=== PATIENT | female | born 1945 | race Caucasian/White ===

== ENCOUNTER 2023-01-02 18:30 | Inpatient (IN) | payer MEDICARE, OTHER ==
[~2023-01-02] VITALS: Ht 157.5 cm; Wt 59.4 kg
[~2023-01-02 18:30] MED LIST: ALEN70TA80 PO
[2023-01-02 19:29] LABS: BASOPHILS % (AUTO) 0.7 % (0.0-2.0); EOSINOPHILS # (AUTO) 0.1 K/uL (0.0-0.7); EOSINOPHILS % (AUTO) 1.8 % (0.0-6.0); HEMATOCRIT 40 % (33-45); HEMOGLOBIN 12.7 g/dL (11.5-14.8); LYMPHOCYTES # (AUTO) 1.4 K/uL (0.8-4.8); LYMPHOCYTES % (AUTO) 20.2 % (20.0-44.0); MEAN CORPUSCULAR HEMOGLOBIN 29 PG (26.0-33.0); MEAN CORPUSCULAR HGB CONC 32 g/dl (31.0-36.0); MEAN CORPUSCULAR VOLUME 91 fL (82-100); MONOCYTES # (AUTO) 0.6 K/uL (0.1-1.30); MONOCYTES % (AUTO) 8.4 % (2.0-12.0); NEUTROPHILS # (AUTO) 4.9 K/uL (1.8-8.9); NEUTROPHILS % (AUTO) 68.9 % (43.0-81.0); PLATELET COUNT (AUTO) 248 K/uL (150-450); RED BLOOD CELL COUNT(AUTO) 4.37 MIL/uL (4.0-5.2); RED CELL DISTRIBUTION WIDTH 14.5 % (11.5-15.0); WHITE BLOOD COUNT (AUTO) 7.1 K/uL (4.3-11.0)
[2023-01-02 19:50] LABS: CALCIUM, SERUM 8.9 mg/dL (8.5-10.1); CARBON DIOXIDE 24 mmol/L (21-32); CHLORIDE 109 mmol/L (98-107); CREATININE 0.7 mg/dL (0.6-1.3); GLUCOSE 102 mg/dL (74-106); POTASSIUM 4.2 mmol/L (3.5-5.1); SODIUM SERUM 140 mmol/L (136-145); UREA NITROGEN, BLOOD 23 mg/dL (7-18)
[2023-01-02 19:56] LABS: ACETAMINOPHEN < 10 ug/ml (10-30); ALANINE AMINOTRANSFERASE 33 U/L (12-78); ALBUMIN 2.6 g/dL (3.4-5.0); ALCOHOL, BLOOD < 3 mg/dL (0-10); ALKALINE PHOSPHATASE 99 U/L (46-116); ASPARTATE AMINOTRANSFERASE 26 U/L (15-37); BILIRUBIN,DIRECT 0.2 mg/dL (0.0-0.2); BILIRUBIN,TOTAL 0.5 mg/dL (0.2-1.0); TOTAL PROTEIN, SERUM 6.3 g/dL (6.4-8.2)
[2023-01-02 19:58] LABS: SALICYLATE < 2.3 mg/dL (2.8-20.0)
[2023-01-02 21:51] LABS: APPEARANCE,URINE SLIGHTLY CLOUDY (CLEAR); BILIRUBIN,URINE NEGATIVE (NEGATIVE); BLOOD, URINE NEGATIVE Ery/uL (NEGATIVE); COLOR,URINE YELLOW (YELLOW); KETONES,URINE NEGATIVE (NEGATIVE); LEUKOCYTE ESTERASE ,URINE 2+ (NEGATIVE); NITRITE, URINE POSITIVE (NEGATIVE); PROTEIN,URINE NEGATIVE (NEGATIVE); UGLUCOSE NEGATIVE (NEGATIVE)
[2023-01-02 22:06] LABS: AMPHETAMINE, URINE NEGATIVE (NEGATIVE); BARBITURATE, URINE NEGATIVE (NEGATIVE); BENZODIAZEPINE, URINE NEGATIVE (NEGATIVE); CANNABINOID, URINE NEGATIVE (NEGATIVE); COCCAINE, URINE NEGATIVE (NEGATIVE); OPIATE, URINE NEGATIVE (NEGATIVE); PHENCYCLIDINE SCREEN,URINE NEGATIVE (NEGATIVE)
[2023-01-02 22:14] LABS: ADD URINE CULTURE YES; BACTERIA,URINE 2+ /HPF (None Seen); RBC,URINE NONE SEEN /HPF (0-2); WBC,URINE 21-50 /HPF (0-3)
[2023-01-03] MEDS ORDERED: FLUT1DIS INH (01:40)
[2023-01-03] MEDS ORDERED: ASCO500T21 PO (01:45)
[2023-01-03] MEDS ORDERED: ASPI-1169 PO (01:47)
[2023-01-03] MEDS ORDERED: ATOR20TA PO (01:48)
[2023-01-03] MEDS ORDERED: DOCU100C36 PO (01:50)
[2023-01-03] MEDS ORDERED: KETO120S5 TP (01:52)
[2023-01-03] MEDS ORDERED: LACT10SO3 PO (01:54)
[2023-01-03] MEDS ORDERED: OLAN5TAB3 PO (01:58)
[2023-01-03] MEDS ORDERED: POLY17PO4 PO (01:58)
[2023-01-03] MEDS ORDERED: RISP3TAB5 PO (02:01)
[2023-01-03] MEDS ORDERED: OMEP20TA5 PO (02:01)
[2023-01-03] MEDS ORDERED: TIOT18CA3 INH (02:02)
[2023-01-03] MEDS ORDERED: CALC100067 PO (02:04)
[2023-01-03 02:15] VITALS: BP 136/83; TEMP 98; O2SAT 98
[2023-01-03] MEDS ORDERED: MAGNESIUM HYDROXIDE 30 ML UDC PO PRN (02:30)
[2023-01-03] MEDS ORDERED: TEMAZEPAM 7.5 MG CAPSULE PO PRN (02:30)
[2023-01-03] MEDS ORDERED: BLOOD SUGAR DIAGNOSTIC 1 EACH STRIP IN ONE (02:30)
[2023-01-03] MEDS ORDERED: ACETAMINOPHEN 325 MG TABLET PO PRN (02:30)
[2023-01-03] MEDS ORDERED: MAG HYDROX/AL HYDROX/SIMETH 30 ML UDC PO PRN (02:30)
[2023-01-03] MEDS ORDERED: Z GUARD REMEDY 4 OZ OINT TP PRN (04:00)
[2023-01-03] MEDS: LORAZEPAM 0.5 MG TABLET PO PRN (05:10)
[2023-01-03 08:00] VITALS: BP 104/64; TEMP 98.1; O2SAT 98
[2023-01-03] MEDS ORDERED: NEOM28.43 TP (08:03)
[2023-01-03] MEDS ORDERED: LORA-259 PO (08:04)
[2023-01-03] MEDS: NITROFURANTOIN/MONOHYDRATE MACROCRYSTALS 100 MG CAPSULE PO SCH ×2 (08:20→16:11)
[2023-01-03] MEDS: Z GUARD REMEDY 4 OZ OINT TP SCH (09:29)
[2023-01-03] MEDS ORDERED: POLYETHYLENE GLYCOL 3350 17 GM POWD.PACK PO SCH (10:00)
[2023-01-03] MEDS ORDERED: CALCIUM CARBONATE 500 MG TAB.CHEW PO PRN (10:30)
[2023-01-03] MEDS: LITHIUM CARBONATE 150 MG CAPSULE PO SCH ×2 (11:34→20:29)
[2023-01-03] MEDS: ALBUTEROL FS 2.5 MG/0.5 ML VIAL.NEB NEB SCH ×2 (13:30→19:30)
[2023-01-03 16:00] VITALS: BP 129/62; TEMP 98.6; O2SAT 94
[2023-01-03] MEDS: OLANZAPINE 2.5 MG TABLET PO SCH (16:11)
[2023-01-03] MEDS: LACTULOSE 10 G/15 ML UDC (PYXIS) PO SCH (16:18)
[2023-01-03] MEDS: NEOMY SULF/BACITRAC ZN/POLY 15 GM TUBE TP SCH (17:38)
[2023-01-03] MEDS: BUDESONIDE RESPULE INH 0.5 MG/2 ML AMPUL.NEB NEB SCH (19:30)
[2023-01-03] MEDS: risperiDONE 1 MG TABLET PO SCH (20:29)
[2023-01-03] MEDS: ATORVASTATIN 10 MG TABLET PO SCH (21:12)
[2023-01-03 21:33] VITALS: BP 138/67; TEMP 98.7; O2SAT 99
[2023-01-04] MEDS: ALBUTEROL FS 2.5 MG/0.5 ML VIAL.NEB NEB SCH ×4 (01:30→19:30)
[2023-01-04] MEDS: BUDESONIDE RESPULE INH 0.5 MG/2 ML AMPUL.NEB NEB SCH ×2 (07:30→19:30)
[2023-01-04 07:36] LABS: BASOPHILS % (AUTO) 0.5 % (0.0-2.0); EOSINOPHILS # (AUTO) 0.2 K/uL (0.0-0.7); EOSINOPHILS % (AUTO) 3.5 % (0.0-6.0); HEMATOCRIT 42 % (33-45); HEMOGLOBIN 13.5 g/dL (11.5-14.8); LYMPHOCYTES # (AUTO) 1.2 K/uL (0.8-4.8); LYMPHOCYTES % (AUTO) 20.4 % (20.0-44.0); MEAN CORPUSCULAR HEMOGLOBIN 29 PG (26.0-33.0); MEAN CORPUSCULAR HGB CONC 33 g/dl (31.0-36.0); MEAN CORPUSCULAR VOLUME 90 fL (82-100); MONOCYTES # (AUTO) 0.4 K/uL (0.1-1.30); MONOCYTES % (AUTO) 6.9 % (2.0-12.0); NEUTROPHILS % (AUTO) 68.7 % (43.0-81.0); PLATELET COUNT (AUTO) 264 K/uL (150-450); RED BLOOD CELL COUNT(AUTO) 4.62 MIL/uL (4.0-5.2); RED CELL DISTRIBUTION WIDTH 14.6 % (11.5-15.0); WHITE BLOOD COUNT (AUTO) 5.9 K/uL (4.3-11.0)
[2023-01-04 08:00] VITALS: BP 115/62; TEMP 98.2; O2SAT 95
[2023-01-04 08:01] LABS: CALCIUM, SERUM 9.1 mg/dL (8.5-10.1); CARBON DIOXIDE 26 mmol/L (21-32); CHLORIDE 108 mmol/L (98-107); CREATININE 0.6 mg/dL (0.6-1.3); GLUCOSE 89 mg/dL (74-106); POTASSIUM 4.2 mmol/L (3.5-5.1); SODIUM SERUM 141 mmol/L (136-145); UREA NITROGEN, BLOOD 17 mg/dL (7-18)
[2023-01-04 08:03] LABS: CHOLESTEROL 109 mg/dL (<200); HDL CHOLESTEROL 39 mg/dL (40-60); LDL 58 mg/dL (0-99); TRIGLYCERIDES 105 mg/dL (30-150)
[2023-01-04] MEDS: LACTULOSE 10 G/15 ML UDC (PYXIS) PO SCH ×2 (08:27→17:22)
[2023-01-04] MEDS: risperiDONE 1 MG TABLET PO SCH ×2 (08:28→21:03)
[2023-01-04] MEDS: LITHIUM CARBONATE 150 MG CAPSULE PO SCH ×2 (08:28→21:03)
[2023-01-04] MEDS: OLANZAPINE 2.5 MG TABLET PO SCH ×2 (08:28→17:22)
[2023-01-04] MEDS: NITROFURANTOIN/MONOHYDRATE MACROCRYSTALS 100 MG CAPSULE PO SCH ×2 (08:28→17:22)
[2023-01-04] MEDS: Z GUARD REMEDY 4 OZ OINT TP SCH (08:29)
[2023-01-04] MEDS: NEOMY SULF/BACITRAC ZN/POLY 15 GM TUBE TP SCH (08:29)
[2023-01-04] MEDS: ASCORBIC ACID 500 MG TABLET PO SCH (09:24)
[2023-01-04] MEDS: DOCUSATE SODIUM 100 MG CAPSULE PO SCH (09:25)
[2023-01-04] MEDS: PANTOPRAZOLE 40 MG TABLET.DR PO SCH (09:25)
[2023-01-04] MEDS: ASPIRIN 81 MG TAB.CHEW PO SCH (09:25)
[2023-01-04] MEDS: LORAZEPAM 0.5 MG TABLET PO PRN (12:57)
[2023-01-04] MEDS: IPRATROPIUM NEB FS 0.5 MG/2.5 ML AMPUL.NEB NEB SCH ×2 (13:05→19:30)
[2023-01-04 16:00] VITALS: BP 112/64; TEMP 98; O2SAT 95
[2023-01-04 20:00] VITALS: BP 136/66; TEMP 98.4; O2SAT 98
[2023-01-04] MEDS ORDERED: KETOCONAZOLE SHAMPOO 120 ML BOTTLE TP SCH (21:00)
[2023-01-04] MEDS: ATORVASTATIN 10 MG TABLET PO SCH (21:08)
[2023-01-05] MEDS: ALBUTEROL FS 2.5 MG/0.5 ML VIAL.NEB NEB SCH ×4 (00:49→19:39)
[2023-01-05] MEDS: IPRATROPIUM NEB FS 0.5 MG/2.5 ML AMPUL.NEB NEB SCH ×4 (00:49→19:39)
[2023-01-05 08:00] VITALS: BP 101/65; TEMP 97.6; O2SAT 97
[2023-01-05 08:03] VITALS: O2SAT 95
[2023-01-05] MEDS: BUDESONIDE RESPULE INH 0.5 MG/2 ML AMPUL.NEB NEB SCH ×2 (08:03→19:39)
[2023-01-05 08:20] VITALS: O2SAT 99
[2023-01-05] MEDS: LACTULOSE 10 G/15 ML UDC (PYXIS) PO SCH ×2 (09:02→16:39)
[2023-01-05] MEDS: ASCORBIC ACID 500 MG TABLET PO SCH (09:02)
[2023-01-05] MEDS: OLANZAPINE 2.5 MG TABLET PO SCH ×2 (09:02→16:39)
[2023-01-05] MEDS: NITROFURANTOIN/MONOHYDRATE MACROCRYSTALS 100 MG CAPSULE PO SCH ×2 (09:02→16:39)
[2023-01-05] MEDS: DOCUSATE SODIUM 100 MG CAPSULE PO SCH (09:02)
[2023-01-05] MEDS: LITHIUM CARBONATE 150 MG CAPSULE PO SCH ×2 (09:03→21:10)
[2023-01-05] MEDS: ASPIRIN 81 MG TAB.CHEW PO SCH (09:03)
[2023-01-05] MEDS: PANTOPRAZOLE 40 MG TABLET.DR PO SCH ×2 (09:03→09:12)
[2023-01-05] MEDS: risperiDONE 1 MG TABLET PO SCH ×2 (09:03→21:11)
[2023-01-05] MEDS: NEOMY SULF/BACITRAC ZN/POLY 15 GM TUBE TP SCH (09:04)
[2023-01-05] MEDS: Z GUARD REMEDY 4 OZ OINT TP SCH (09:04)
[2023-01-05] MEDS: KETOCONAZOLE SHAMPOO 120 ML BOTTLE TP SCH (09:04)
[2023-01-05] MEDS ORDERED: PANTOPRAZOLE 40 MG TABLET.DR PO SCH (09:08)
[2023-01-05 16:00] VITALS: BP 100/69; TEMP 97.7; O2SAT 96
[2023-01-05 19:39] VITALS: O2SAT 96
[2023-01-05 20:03] VITALS: O2SAT 99
[2023-01-05] MEDS: ATORVASTATIN 10 MG TABLET PO SCH (21:10)
[2023-01-06] MEDS: IPRATROPIUM NEB FS 0.5 MG/2.5 ML AMPUL.NEB NEB SCH ×4 (00:43→20:45)
[2023-01-06] MEDS: ALBUTEROL FS 2.5 MG/0.5 ML VIAL.NEB NEB SCH ×4 (00:43→20:45)
[2023-01-06] MEDS: BUDESONIDE RESPULE INH 0.5 MG/2 ML AMPUL.NEB NEB SCH ×2 (07:24→20:45)
[2023-01-06 08:00] VITALS: BP 122/65; TEMP 97.9; O2SAT 95
[2023-01-06] MEDS: OLANZAPINE 2.5 MG TABLET PO SCH ×2 (08:30→17:08)
[2023-01-06] MEDS: ASPIRIN 81 MG TAB.CHEW PO SCH (08:30)
[2023-01-06] MEDS: NITROFURANTOIN/MONOHYDRATE MACROCRYSTALS 100 MG CAPSULE PO SCH ×2 (08:30→17:08)
[2023-01-06] MEDS: risperiDONE 1 MG TABLET PO SCH ×2 (08:30→21:34)
[2023-01-06] MEDS: LACTULOSE 10 G/15 ML UDC (PYXIS) PO SCH ×2 (08:30→17:08)
[2023-01-06] MEDS: ASCORBIC ACID 500 MG TABLET PO SCH (08:30)
[2023-01-06] MEDS: DOCUSATE SODIUM 100 MG CAPSULE PO SCH (08:30)
[2023-01-06] MEDS: PANTOPRAZOLE 40 MG TABLET.DR PO SCH (08:30)
[2023-01-06] MEDS: LITHIUM CARBONATE 150 MG CAPSULE PO SCH ×2 (08:31→21:34)
[2023-01-06] MEDS: NEOMY SULF/BACITRAC ZN/POLY 15 GM TUBE TP SCH (08:32)
[2023-01-06] MEDS: Z GUARD REMEDY 4 OZ OINT TP SCH (09:00)
[2023-01-06 16:00] VITALS: BP 108/55; TEMP 97.8; O2SAT 96
[2023-01-06 20:31] VITALS: BP 104/46; TEMP 97.9; O2SAT 95
[2023-01-06] MEDS: ATORVASTATIN 10 MG TABLET PO SCH (21:35)
[2023-01-07] MEDS: ALBUTEROL FS 2.5 MG/0.5 ML VIAL.NEB NEB SCH ×4 (02:38→20:49)
[2023-01-07] MEDS: IPRATROPIUM NEB FS 0.5 MG/2.5 ML AMPUL.NEB NEB SCH ×4 (02:38→20:49)
[2023-01-07] MEDS: BUDESONIDE RESPULE INH 0.5 MG/2 ML AMPUL.NEB NEB SCH ×2 (07:30→20:49)
[2023-01-07 08:00] VITALS: BP 111/57; TEMP 97.6; O2SAT 95
[2023-01-07] MEDS: Z GUARD REMEDY 4 OZ OINT TP SCH (09:00)
[2023-01-07] MEDS: ASPIRIN 81 MG TAB.CHEW PO SCH (10:01)
[2023-01-07] MEDS: LACTULOSE 10 G/15 ML UDC (PYXIS) PO SCH ×2 (10:01→17:59)
[2023-01-07] MEDS: NITROFURANTOIN/MONOHYDRATE MACROCRYSTALS 100 MG CAPSULE PO SCH ×2 (10:02→18:00)
[2023-01-07] MEDS: PANTOPRAZOLE 40 MG TABLET.DR PO SCH (10:02)
[2023-01-07] MEDS: DOCUSATE SODIUM 100 MG CAPSULE PO SCH (10:02)
[2023-01-07] MEDS: LITHIUM CARBONATE 150 MG CAPSULE PO SCH ×2 (10:02→21:57)
[2023-01-07] MEDS: risperiDONE 1 MG TABLET PO SCH ×2 (10:03→21:57)
[2023-01-07] MEDS: OLANZAPINE 2.5 MG TABLET PO SCH ×2 (10:03→18:00)
[2023-01-07] MEDS: ASCORBIC ACID 500 MG TABLET PO SCH (10:03)
[2023-01-07] MEDS: NEOMY SULF/BACITRAC ZN/POLY 15 GM TUBE TP SCH (13:53)
[2023-01-07 16:00] VITALS: BP 114/68; TEMP 97.2; O2SAT 99
[2023-01-07 20:20] VITALS: BP 129/62; TEMP 97.8; O2SAT 98
[2023-01-07] MEDS: ATORVASTATIN 10 MG TABLET PO SCH (21:58)
[2023-01-08] MEDS: IPRATROPIUM NEB FS 0.5 MG/2.5 ML AMPUL.NEB NEB SCH ×4 (01:30→21:03)
[2023-01-08] MEDS: ALBUTEROL FS 2.5 MG/0.5 ML VIAL.NEB NEB SCH ×4 (01:30→21:03)
[2023-01-08 06:50] LABS: BASOPHILS % (AUTO) 0.5 % (0.0-2.0); EOSINOPHILS # (AUTO) 0.4 K/uL (0.0-0.7); EOSINOPHILS % (AUTO) 4.9 % (0.0-6.0); HEMATOCRIT 40 % (33-45); HEMOGLOBIN 13.1 g/dL (11.5-14.8); LYMPHOCYTES % (AUTO) 25.9 % (20.0-44.0); MEAN CORPUSCULAR HEMOGLOBIN 30 PG (26.0-33.0); MEAN CORPUSCULAR HGB CONC 33 g/dl (31.0-36.0); MEAN CORPUSCULAR VOLUME 91 fL (82-100); MONOCYTES # (AUTO) 0.7 K/uL (0.1-1.30); MONOCYTES % (AUTO) 9.1 % (2.0-12.0); NEUTROPHILS # (AUTO) 4.5 K/uL (1.8-8.9); NEUTROPHILS % (AUTO) 59.6 % (43.0-81.0); PLATELET COUNT (AUTO) 263 K/uL (150-450); RED CELL DISTRIBUTION WIDTH 14.7 % (11.5-15.0); WHITE BLOOD COUNT (AUTO) 7.6 K/uL (4.3-11.0)
[2023-01-08 07:07] LABS: ALANINE AMINOTRANSFERASE 28 U/L (12-78); ALBUMIN 2.6 g/dL (3.4-5.0); ALKALINE PHOSPHATASE 102 U/L (46-116); ASPARTATE AMINOTRANSFERASE 22 U/L (15-37); BILIRUBIN,TOTAL 0.8 mg/dL (0.2-1.0); CALCIUM, SERUM 9.3 mg/dL (8.5-10.1); CARBON DIOXIDE 25 mmol/L (21-32); CHLORIDE 107 mmol/L (98-107); CREATININE 0.7 mg/dL (0.6-1.3); GLUCOSE 91 mg/dL (74-106); POTASSIUM 4.1 mmol/L (3.5-5.1); SODIUM SERUM 139 mmol/L (136-145); TOTAL PROTEIN, SERUM 6.2 g/dL (6.4-8.2); UREA NITROGEN, BLOOD 19 mg/dL (7-18)
[2023-01-08] MEDS: BUDESONIDE RESPULE INH 0.5 MG/2 ML AMPUL.NEB NEB SCH ×2 (07:30→21:03)
[2023-01-08 08:00] VITALS: BP 98/62; TEMP 97.9; O2SAT 96
[2023-01-08] MEDS: NITROFURANTOIN/MONOHYDRATE MACROCRYSTALS 100 MG CAPSULE PO SCH ×2 (09:01→17:09)
[2023-01-08] MEDS: LACTULOSE 10 G/15 ML UDC (PYXIS) PO SCH ×2 (09:01→17:10)
[2023-01-08] MEDS: ASCORBIC ACID 500 MG TABLET PO SCH (09:01)
[2023-01-08] MEDS: PANTOPRAZOLE 40 MG TABLET.DR PO SCH (09:02)
[2023-01-08] MEDS: DOCUSATE SODIUM 100 MG CAPSULE PO SCH (09:02)
[2023-01-08] MEDS: ASPIRIN 81 MG TAB.CHEW PO SCH (09:02)
[2023-01-08] MEDS: risperiDONE 1 MG TABLET PO SCH ×2 (09:02→21:40)
[2023-01-08] MEDS: OLANZAPINE 2.5 MG TABLET PO SCH ×3 (09:02→17:09)
[2023-01-08] MEDS: LITHIUM CARBONATE 150 MG CAPSULE PO SCH ×2 (09:02→21:39)
[2023-01-08] MEDS: Z GUARD REMEDY 4 OZ OINT TP SCH (09:03)
[2023-01-08] MEDS: KETOCONAZOLE SHAMPOO 120 ML BOTTLE TP SCH (09:03)
[2023-01-08] MEDS: NEOMY SULF/BACITRAC ZN/POLY 15 GM TUBE TP SCH (09:03)
[2023-01-08] MEDS: ALENDRONATE 70 MG TABLET PO SCH (09:27)
[2023-01-08 16:00] VITALS: BP 113/58; TEMP 98.7; O2SAT 96
[2023-01-08 20:26] VITALS: BP 112/50; TEMP 97.9; O2SAT 96
[2023-01-08] MEDS: ATORVASTATIN 10 MG TABLET PO SCH (21:41)
[2023-01-09] MEDS: ALBUTEROL FS 2.5 MG/0.5 ML VIAL.NEB NEB SCH ×4 (01:30→19:30)
[2023-01-09] MEDS: IPRATROPIUM NEB FS 0.5 MG/2.5 ML AMPUL.NEB NEB SCH ×4 (01:30→19:30)
[2023-01-09] MEDS: BUDESONIDE RESPULE INH 0.5 MG/2 ML AMPUL.NEB NEB SCH ×2 (07:28→19:30)
[2023-01-09 08:00] VITALS: BP 104/56; TEMP 97.7; O2SAT 96
[2023-01-09] MEDS: ASPIRIN 81 MG TAB.CHEW PO SCH (08:22)
[2023-01-09] MEDS: LITHIUM CARBONATE 150 MG CAPSULE PO SCH ×2 (08:22→21:14)
[2023-01-09] MEDS: ASCORBIC ACID 500 MG TABLET PO SCH (08:24)
[2023-01-09] MEDS: PANTOPRAZOLE 40 MG TABLET.DR PO SCH (08:24)
[2023-01-09] MEDS: OLANZAPINE 2.5 MG TABLET PO SCH ×3 (08:24→16:23)
[2023-01-09] MEDS: DOCUSATE SODIUM 100 MG CAPSULE PO SCH (08:24)
[2023-01-09] MEDS: risperiDONE 1 MG TABLET PO SCH ×2 (08:24→21:12)
[2023-01-09] MEDS: NITROFURANTOIN/MONOHYDRATE MACROCRYSTALS 100 MG CAPSULE PO SCH ×2 (08:25→16:23)
[2023-01-09] MEDS: LACTULOSE 10 G/15 ML UDC (PYXIS) PO SCH ×2 (08:57→16:23)
[2023-01-09] MEDS: NEOMY SULF/BACITRAC ZN/POLY 15 GM TUBE TP SCH (09:30)
[2023-01-09] MEDS: Z GUARD REMEDY 4 OZ OINT TP SCH (09:30)
[2023-01-09 16:00] VITALS: BP 107/58; TEMP 97.5; O2SAT 97
[2023-01-09 21:12] VITALS: BP 109/58; TEMP 98.4; O2SAT 95
[2023-01-09] MEDS: ATORVASTATIN 10 MG TABLET PO SCH (21:12)
[2023-01-10] MEDS: IPRATROPIUM NEB FS 0.5 MG/2.5 ML AMPUL.NEB NEB SCH ×4 (02:44→19:30)
[2023-01-10] MEDS: ALBUTEROL FS 2.5 MG/0.5 ML VIAL.NEB NEB SCH ×4 (02:44→19:30)
[2023-01-10 02:45] VITALS: O2SAT 94
[2023-01-10] MEDS: BUDESONIDE RESPULE INH 0.5 MG/2 ML AMPUL.NEB NEB SCH ×2 (07:30→19:30)
[2023-01-10 08:00] VITALS: BP 113/62; TEMP 98.6; O2SAT 96
[2023-01-10] MEDS: LACTULOSE 10 G/15 ML UDC (PYXIS) PO SCH ×2 (08:31→16:21)
[2023-01-10] MEDS: PANTOPRAZOLE 40 MG TABLET.DR PO SCH (08:31)
[2023-01-10] MEDS: risperiDONE 1 MG TABLET PO SCH ×2 (08:33→21:23)
[2023-01-10] MEDS: DOCUSATE SODIUM 100 MG CAPSULE PO SCH (08:33)
[2023-01-10] MEDS: ASCORBIC ACID 500 MG TABLET PO SCH (08:33)
[2023-01-10] MEDS: OLANZAPINE 2.5 MG TABLET PO SCH ×3 (08:33→16:21)
[2023-01-10] MEDS: ASPIRIN 81 MG TAB.CHEW PO SCH (08:33)
[2023-01-10] MEDS: LITHIUM CARBONATE 150 MG CAPSULE PO SCH ×2 (08:33→21:23)
[2023-01-10] MEDS: NITROFURANTOIN/MONOHYDRATE MACROCRYSTALS 100 MG CAPSULE PO SCH (08:35)
[2023-01-10] MEDS: Z GUARD REMEDY 4 OZ OINT TP SCH (09:37)
[2023-01-10] MEDS: NEOMY SULF/BACITRAC ZN/POLY 15 GM TUBE TP SCH (09:38)
[2023-01-10 16:00] VITALS: BP 111/60; TEMP 97.9; O2SAT 94
[2023-01-10 20:00] VITALS: BP 102/62; TEMP 98.1; O2SAT 95
[2023-01-10] MEDS: ATORVASTATIN 10 MG TABLET PO SCH (21:23)
[2023-01-11] MEDS: IPRATROPIUM NEB FS 0.5 MG/2.5 ML AMPUL.NEB NEB SCH ×4 (01:30→19:30)
[2023-01-11] MEDS: ALBUTEROL FS 2.5 MG/0.5 ML VIAL.NEB NEB SCH ×4 (01:30→19:30)
[2023-01-11] MEDS: LORAZEPAM 0.5 MG TABLET PO PRN (04:12)
[2023-01-11] MEDS: BUDESONIDE RESPULE INH 0.5 MG/2 ML AMPUL.NEB NEB SCH ×2 (07:30→19:30)
[2023-01-11 08:00] VITALS: BP 100/60; TEMP 97.9; O2SAT 94
[2023-01-11] MEDS: PANTOPRAZOLE 40 MG TABLET.DR PO SCH (08:35)
[2023-01-11] MEDS: ASPIRIN 81 MG TAB.CHEW PO SCH (08:35)
[2023-01-11] MEDS: OLANZAPINE 2.5 MG TABLET PO SCH ×3 (08:35→16:28)
[2023-01-11] MEDS: LITHIUM CARBONATE 150 MG CAPSULE PO SCH ×2 (08:35→21:16)
[2023-01-11] MEDS: ASCORBIC ACID 500 MG TABLET PO SCH (08:35)
[2023-01-11] MEDS: risperiDONE 1 MG TABLET PO SCH ×2 (08:35→21:17)
[2023-01-11] MEDS: NEOMY SULF/BACITRAC ZN/POLY 15 GM TUBE TP SCH (08:38)
[2023-01-11] MEDS: LACTULOSE 10 G/15 ML UDC (PYXIS) PO SCH ×2 (08:40→16:28)
[2023-01-11] MEDS: Z GUARD REMEDY 4 OZ OINT TP SCH (08:40)
[2023-01-11] MEDS: KETOCONAZOLE SHAMPOO 120 ML BOTTLE TP SCH (12:00)
[2023-01-11 16:00] VITALS: BP 99/62; TEMP 98.6; O2SAT 96
[2023-01-11 20:00] VITALS: BP 104/67; TEMP 97.6; O2SAT 96
[2023-01-11] MEDS: ATORVASTATIN 10 MG TABLET PO SCH (21:17)
[2023-01-12] MEDS: ALBUTEROL FS 2.5 MG/0.5 ML VIAL.NEB NEB SCH ×4 (01:30→19:30)
[2023-01-12] MEDS: IPRATROPIUM NEB FS 0.5 MG/2.5 ML AMPUL.NEB NEB SCH ×4 (01:30→19:30)
[2023-01-12] MEDS: BUDESONIDE RESPULE INH 0.5 MG/2 ML AMPUL.NEB NEB SCH ×2 (07:30→19:30)
[2023-01-12] MEDS: OLANZAPINE 2.5 MG TABLET PO SCH ×3 (08:38→16:53)
[2023-01-12] MEDS: ASCORBIC ACID 500 MG TABLET PO SCH (08:38)
[2023-01-12] MEDS: PANTOPRAZOLE 40 MG TABLET.DR PO SCH (08:38)
[2023-01-12] MEDS: LITHIUM CARBONATE 150 MG CAPSULE PO SCH ×2 (08:38→21:31)
[2023-01-12] MEDS: ASPIRIN 81 MG TAB.CHEW PO SCH (08:38)
[2023-01-12] MEDS: DOCUSATE SODIUM 250 MG CAPSULE PO SCH (08:38)
[2023-01-12] MEDS: LACTULOSE 10 G/15 ML UDC (PYXIS) PO SCH ×2 (08:39→16:53)
[2023-01-12] MEDS: risperiDONE 1 MG TABLET PO SCH ×2 (08:39→21:31)
[2023-01-12] MEDS: Z GUARD REMEDY 4 OZ OINT TP SCH (09:08)
[2023-01-12] MEDS: NEOMY SULF/BACITRAC ZN/POLY 15 GM TUBE TP SCH (09:08)
[2023-01-12 20:18] VITALS: BP 109/61; TEMP 98.1; O2SAT 94
[2023-01-12] MEDS: ATORVASTATIN 10 MG TABLET PO SCH (21:29)
[2023-01-13] MEDS: ALBUTEROL FS 2.5 MG/0.5 ML VIAL.NEB NEB SCH ×4 (01:30→19:30)
[2023-01-13] MEDS: IPRATROPIUM NEB FS 0.5 MG/2.5 ML AMPUL.NEB NEB SCH ×4 (01:30→19:30)
[2023-01-13] MEDS: BUDESONIDE RESPULE INH 0.5 MG/2 ML AMPUL.NEB NEB SCH ×2 (07:30→19:30)
[2023-01-13 08:00] VITALS: BP 113/53; TEMP 97.7; O2SAT 96
[2023-01-13] MEDS: ASPIRIN 81 MG TAB.CHEW PO SCH (08:36)
[2023-01-13] MEDS: PANTOPRAZOLE 40 MG TABLET.DR PO SCH (08:36)
[2023-01-13] MEDS: risperiDONE 1 MG TABLET PO SCH ×2 (08:36→20:52)
[2023-01-13] MEDS: DOCUSATE SODIUM 250 MG CAPSULE PO SCH (08:36)
[2023-01-13] MEDS: LACTULOSE 10 G/15 ML UDC (PYXIS) PO SCH ×2 (08:36→16:20)
[2023-01-13] MEDS: OLANZAPINE 2.5 MG TABLET PO SCH ×3 (08:36→16:21)
[2023-01-13] MEDS: LITHIUM CARBONATE 150 MG CAPSULE PO SCH ×2 (08:36→20:52)
[2023-01-13] MEDS: ASCORBIC ACID 500 MG TABLET PO SCH (08:37)
[2023-01-13] MEDS: NEOMY SULF/BACITRAC ZN/POLY 15 GM TUBE TP SCH (09:42)
[2023-01-13] MEDS: Z GUARD REMEDY 4 OZ OINT TP SCH (09:42)
[2023-01-13 16:00] VITALS: BP 104/63; TEMP 98.7; O2SAT 97
[2023-01-13 20:17] VITALS: BP 100/40; TEMP 98.6; O2SAT 96
[2023-01-13] MEDS: ATORVASTATIN 10 MG TABLET PO SCH (21:00)
[2023-01-14] MEDS: IPRATROPIUM NEB FS 0.5 MG/2.5 ML AMPUL.NEB NEB SCH ×4 (01:30→20:28)
[2023-01-14] MEDS: ALBUTEROL FS 2.5 MG/0.5 ML VIAL.NEB NEB SCH ×4 (01:30→20:28)
[2023-01-14 06:54] LABS: BASOPHILS # (AUTO) 0.1 K/uL (0.0-0.2); BASOPHILS % (AUTO) 0.7 % (0.0-2.0); EOSINOPHILS # (AUTO) 0.4 K/uL (0.0-0.7); EOSINOPHILS % (AUTO) 4.6 % (0.0-6.0); HEMATOCRIT 42 % (33-45); HEMOGLOBIN 13.7 g/dL (11.5-14.8); LYMPHOCYTES # (AUTO) 1.5 K/uL (0.8-4.8); LYMPHOCYTES % (AUTO) 16.9 % (20.0-44.0); MEAN CORPUSCULAR HEMOGLOBIN 30 PG (26.0-33.0); MEAN CORPUSCULAR HGB CONC 32 g/dl (31.0-36.0); MEAN CORPUSCULAR VOLUME 92 fL (82-100); MONOCYTES # (AUTO) 0.7 K/uL (0.1-1.30); MONOCYTES % (AUTO) 7.8 % (2.0-12.0); NEUTROPHILS # (AUTO) 6.1 K/uL (1.8-8.9); PLATELET COUNT (AUTO) 292 K/uL (150-450); RED BLOOD CELL COUNT(AUTO) 4.63 MIL/uL (4.0-5.2); RED CELL DISTRIBUTION WIDTH 14.9 % (11.5-15.0); WHITE BLOOD COUNT (AUTO) 8.7 K/uL (4.3-11.0)
[2023-01-14] MEDS: BUDESONIDE RESPULE INH 0.5 MG/2 ML AMPUL.NEB NEB SCH ×2 (07:16→20:28)
[2023-01-14 07:43] LABS: ALANINE AMINOTRANSFERASE 29 U/L (12-78); ALBUMIN 2.4 g/dL (3.4-5.0); ALKALINE PHOSPHATASE 97 U/L (46-116); ASPARTATE AMINOTRANSFERASE 25 U/L (15-37); BILIRUBIN,TOTAL 0.5 mg/dL (0.2-1.0); CALCIUM, SERUM 9.3 mg/dL (8.5-10.1); CARBON DIOXIDE 24 mmol/L (21-32); CHLORIDE 107 mmol/L (98-107); CREATININE 0.8 mg/dL (0.6-1.3); GLUCOSE 87 mg/dL (74-106); POTASSIUM 4.2 mmol/L (3.5-5.1); SODIUM SERUM 135 mmol/L (136-145); UREA NITROGEN, BLOOD 22 mg/dL (7-18)
[2023-01-14 08:00] VITALS: BP 105/56; TEMP 97.7; O2SAT 96
[2023-01-14] MEDS: DOCUSATE SODIUM 250 MG CAPSULE PO SCH (08:46)
[2023-01-14] MEDS: PANTOPRAZOLE 40 MG TABLET.DR PO SCH (08:46)
[2023-01-14] MEDS: LACTULOSE 10 G/15 ML UDC (PYXIS) PO SCH ×2 (08:46→17:46)
[2023-01-14] MEDS: LITHIUM CARBONATE 150 MG CAPSULE PO SCH ×3 (08:46→21:12)
[2023-01-14] MEDS: risperiDONE 1 MG TABLET PO SCH ×2 (08:46→21:12)
[2023-01-14] MEDS: OLANZAPINE 2.5 MG TABLET PO SCH ×3 (08:46→17:46)
[2023-01-14] MEDS: ASPIRIN 81 MG TAB.CHEW PO SCH (08:46)
[2023-01-14] MEDS: ASCORBIC ACID 500 MG TABLET PO SCH (08:46)
[2023-01-14] MEDS: NEOMY SULF/BACITRAC ZN/POLY 15 GM TUBE TP SCH (08:57)
[2023-01-14] MEDS: Z GUARD REMEDY 4 OZ OINT TP SCH (10:05)
[2023-01-14 16:00] VITALS: BP 110/59; TEMP 98.1; O2SAT 96
[2023-01-14 20:22] VITALS: BP 120/54; TEMP 98.2; O2SAT 96
[2023-01-14] MEDS: ATORVASTATIN 10 MG TABLET PO SCH (21:12)
[2023-01-15] MEDS: ALBUTEROL FS 2.5 MG/0.5 ML VIAL.NEB NEB SCH ×3 (01:30→13:30)
[2023-01-15] MEDS: IPRATROPIUM NEB FS 0.5 MG/2.5 ML AMPUL.NEB NEB SCH ×3 (01:30→13:30)
[2023-01-15] MEDS: BUDESONIDE RESPULE INH 0.5 MG/2 ML AMPUL.NEB NEB SCH (07:30)
[2023-01-15 08:00] VITALS: BP 100/58; TEMP 97.3; O2SAT 100
[2023-01-15] MEDS: ASPIRIN 81 MG TAB.CHEW PO SCH (08:36)
[2023-01-15] MEDS: DOCUSATE SODIUM 250 MG CAPSULE PO SCH (08:36)
[2023-01-15] MEDS: risperiDONE 1 MG TABLET PO SCH (08:36)
[2023-01-15] MEDS: LITHIUM CARBONATE 150 MG CAPSULE PO SCH (08:36)
[2023-01-15] MEDS: OLANZAPINE 2.5 MG TABLET PO SCH ×2 (08:36→13:03)
[2023-01-15] MEDS: PANTOPRAZOLE 40 MG TABLET.DR PO SCH (08:36)
[2023-01-15] MEDS: ASCORBIC ACID 500 MG TABLET PO SCH (08:36)
[2023-01-15] MEDS: LACTULOSE 10 G/15 ML UDC (PYXIS) PO SCH (08:38)
[2023-01-15] MEDS: ALENDRONATE 70 MG TABLET PO SCH (08:39)
[2023-01-15] MEDS: Z GUARD REMEDY 4 OZ OINT TP SCH (08:39)
[2023-01-15] MEDS: KETOCONAZOLE SHAMPOO 120 ML BOTTLE TP SCH (09:42)
== END 2023-01-15 14:30 | DRG 885 ==
LOC: ER 18:35 → GPS 01-03 00:49
PROVIDERS: ADMIT Psychiatry & Neurology Psychosomatic Medicine; ATTEND Nurse Practitioner Acute Care
DX: F25.9 Schizoaffective disorder, unspecified (principal); G93.41 Metabolic encephalopathy; N39.0 Urinary tract infection, site not specified; E44.0 Moderate protein-calorie malnutrition; F29 Unspecified psychosis not due to a substance or known physiological condition; I10 Essential (primary) hypertension; K21.9 Gastro-esophageal reflux disease without esophagitis; Z20.822 Contact with and (suspected) exposure to COVID-19; E78.5 Hyperlipidemia, unspecified; E88.09 Other disorders of plasma-protein metabolism, not elsewhere classified; F39 Unspecified mood [affective] disorder; B96.20 Unspecified Escherichia coli [E. coli] as the cause of diseases classified elsewhere; R29.6 Repeated falls; Z91.51 Personal history of suicidal behavior; J44.9 Chronic obstructive pulmonary disease, unspecified; M81.0 Age-related osteoporosis without current pathological fracture; Z68.24 Body mass index [BMI] 24.0-24.9, adult; S02.2XXA Fracture of nasal bones, initial encounter for closed fracture; X58.XXXA Exposure to other specified factors, initial encounter; Y93.9 Activity, unspecified; Y92.129 Unspecified place in nursing home as the place of occurrence of the external cause
CPT/HCPCS: 36415; 70450-TC; 72125-TC; 80048-TC; 80053-TC; 80061-TC; 80076-TC; 81001; 82962-TC; 85025-TC; 87081-TC; 87086-TC; 94799-TC; C9803; G0480

== ENCOUNTER 2023-09-06 16:24 | Inpatient (IN) | payer MEDICARE, OTHER ==
[~2023-09-06] VITALS: Ht 157.5 cm; Wt 62.1 kg
[2023-09-06] MEDS: CEFTRIAXONE 1 G in IV D5W 50 ML IV SCH ×2 (09:00→20:03)
[~2023-09-06 16:24] MED LIST changes: +ASCO500T21 PO; +ASPI-1169 PO; +ATOR20TA PO; +CALC100067 PO; +DOCU100C36 PO; +FLUT1DIS INH; +KETO120S5 TP; +LACT10SO3 PO; +LORA-259 PO; +NEOM28.43 TP; +OLAN5TAB3 PO; +OMEP20TA5 PO; +POLY17PO4 PO; +RISP3TAB5 PO; +TIOT18CA3 INH
[2023-09-06] MEDS ORDERED: ALEN70TA80 PO (17:11)
[2023-09-06] MEDS ORDERED: IPRA4AER IH (17:11)
[2023-09-06] MEDS ORDERED: RISP0.2515 PO (17:11)
[2023-09-06] MEDS ORDERED: PANT40TA2 PO (17:11)
[2023-09-06] MEDS ORDERED: OLAN2.5T3 PO (17:11)
[2023-09-06] MEDS ORDERED: LITH150C PO (17:11)
[2023-09-06 17:42] LABS: BASOPHILS % (AUTO) 0.4 % (0.0-2.0); EOSINOPHILS # (AUTO) 0.2 K/uL (0.0-0.7); EOSINOPHILS % (AUTO) 2.2 % (0.0-6.0); HEMATOCRIT 43 % (33-45); LYMPHOCYTES # (AUTO) 2.1 K/uL (0.8-4.8); LYMPHOCYTES % (AUTO) 26.8 % (20.0-44.0); MEAN CORPUSCULAR HEMOGLOBIN 30 PG (26.0-33.0); MEAN CORPUSCULAR HGB CONC 33 g/dl (31.0-36.0); MEAN CORPUSCULAR VOLUME 92 fL (82-100); MONOCYTES # (AUTO) 0.6 K/uL (0.1-1.30); MONOCYTES % (AUTO) 8.1 % (2.0-12.0); NEUTROPHILS # (AUTO) 4.9 K/uL (1.8-8.9); NEUTROPHILS % (AUTO) 62.5 % (43.0-81.0); PLATELET COUNT (AUTO) 252 K/uL (150-450); RED BLOOD CELL COUNT(AUTO) 4.72 MIL/uL (4.0-5.2); RED CELL DISTRIBUTION WIDTH 14.4 % (11.5-15.0); WHITE BLOOD COUNT (AUTO) 7.8 K/uL (4.3-11.0)
[2023-09-06 17:49] LABS: CALCIUM, SERUM 8.8 mg/dL (8.5-10.1); CARBON DIOXIDE 25 mmol/L (21-32); CHLORIDE 109 mmol/L (98-107); CREATININE 0.9 mg/dL (0.6-1.3); GLUCOSE 94 mg/dL (74-106); POTASSIUM 4.2 mmol/L (3.5-5.1); SODIUM SERUM 140 mmol/L (136-145); UREA NITROGEN, BLOOD 24 mg/dL (7-18)
[2023-09-06 18:04] LABS: ALANINE AMINOTRANSFERASE 22 U/L (12-78); ALBUMIN 2.6 g/dL (3.4-5.0); ALKALINE PHOSPHATASE 94 U/L (46-116); ASPARTATE AMINOTRANSFERASE 23 U/L (15-37); BILIRUBIN,DIRECT 0.2 mg/dL (0.0-0.2); BILIRUBIN,TOTAL 0.5 mg/dL (0.2-1.0); LIPASE 54 U/L (16-77); NT-PRO BNP 129 pg/mL (0-125); TOTAL PROTEIN, SERUM 6.7 g/dL (6.4-8.2)
[2023-09-06 19:05] LABS: APPEARANCE,URINE SLIGHTLY CLOUDY (CLEAR); BILIRUBIN,URINE NEGATIVE (NEGATIVE); BLOOD, URINE 2+ Ery/uL (NEGATIVE); COLOR,URINE YELLOW (YELLOW); KETONES,URINE NEGATIVE (NEGATIVE); LEUKOCYTE ESTERASE ,URINE 3+ (NEGATIVE); NITRITE, URINE POSITIVE (NEGATIVE); PROTEIN,URINE NEGATIVE (NEGATIVE); UGLUCOSE NEGATIVE (NEGATIVE)
[2023-09-06 19:17] LABS: ADD URINE CULTURE YES; BACTERIA,URINE 3+ /HPF (None Seen); RBC,URINE 21-50 /HPF (0-2); SQUAMOUS EPITHELIAL CELL,UR 0-2 /HPF (None Seen); WBC,URINE 51-80 /HPF (0-3)
[2023-09-06] MEDS ORDERED: MAGNESIUM HYDROXIDE 30 ML UDC PO PRN (20:00)
[2023-09-06] MEDS ORDERED: Z GUARD REMEDY 4 OZ OINT TP PRN (20:00)
[2023-09-06] MEDS ORDERED: ONDANSETRON HCL/PF 4 MG/2 ML VIAL IVP PRN (20:00)
[2023-09-06] MEDS ORDERED: ZOLPIDEM TARTRATE 5 MG TABLET PO PRN (20:00)
[2023-09-06] MEDS ORDERED: ACETAMINOPHEN 325 MG TABLET PO PRN (20:00)
[2023-09-06] MEDS ORDERED: LORAZEPAM 1 MG TABLET PO PRN (20:00)
[2023-09-06] MEDS ORDERED: MAG HYDROX/AL HYDROX/SIMETH 30 ML UDC PO PRN (20:00)
[2023-09-06] MEDS ORDERED: CEFTRIAXONE 1GM BAG (ER ONLY) 50 ML IV ONE (20:01)
[2023-09-06] MEDS: CEFTRIAXONE 1 G in IV D5W 50 ML IV ONE (20:28)
[2023-09-06 21:50] VITALS: BP 109/51; TEMP 98.4; O2SAT 96
[2023-09-06] MEDS ORDERED: Medication Not On Formulary EA (Atorvastatin Calcium (Lipitor) 20 MG) PO SCH (22:00)
[2023-09-06] MEDS: IV NS 0.9% 1,000 ML IV PRN (22:20)
[2023-09-06] MEDS: ATORVASTATIN 10 MG TABLET PO ONE (22:45)
[2023-09-07] VITALS (10 sets, daily range): BP systolic 102–119; BP diastolic 56–59; TEMP 97.5–98; O2SAT 94–97
[2023-09-07] MEDS ORDERED: Medication Not On Formulary EA (Ipratropium/Albuterol Sulfate (Combivent Respimat 20-100 IH SCH
[2023-09-07] MEDS: ALBUTEROL FS 2.5 MG/0.5 ML VIAL.NEB NEB SCH (02:00)
[2023-09-07] MEDS: IPRATROPIUM NEB FS 0.5 MG/2.5 ML AMPUL.NEB IH SCH (02:00)
[2023-09-07] MEDS: PANTOPRAZOLE 40 MG TABLET.DR PO SCH (07:30)
[2023-09-07 07:55] LABS: BASOPHILS % (AUTO) 0.5 % (0.0-2.0); EOSINOPHILS # (AUTO) 0.1 K/uL (0.0-0.7); HEMATOCRIT 42 % (33-45); HEMOGLOBIN 13.2 g/dL (11.5-14.8); LYMPHOCYTES # (AUTO) 1.6 K/uL (0.8-4.8); LYMPHOCYTES % (AUTO) 22.8 % (20.0-44.0); MEAN CORPUSCULAR HEMOGLOBIN 30 PG (26.0-33.0); MEAN CORPUSCULAR HGB CONC 32 g/dl (31.0-36.0); MEAN CORPUSCULAR VOLUME 96 fL (82-100); MONOCYTES # (AUTO) 0.5 K/uL (0.1-1.30); NEUTROPHILS # (AUTO) 4.8 K/uL (1.8-8.9); NEUTROPHILS % (AUTO) 67.7 % (43.0-81.0); PLATELET COUNT (AUTO) 239 K/uL (150-450); RED BLOOD CELL COUNT(AUTO) 4.36 MIL/uL (4.0-5.2)
[2023-09-07] MEDS: ASPIRIN 81 MG TAB.CHEW PO SCH (09:00)
[2023-09-07] MEDS: LACTULOSE 10 G/15 ML UDC (PYXIS) PO SCH (09:00)
[2023-09-07] MEDS: OLANZAPINE 2.5 MG TABLET PO SCH (09:00)
[2023-09-07 09:14] LABS: ALANINE AMINOTRANSFERASE 18 U/L (12-78); ALBUMIN 2.2 g/dL (3.4-5.0); ALKALINE PHOSPHATASE 88 U/L (46-116); ASPARTATE AMINOTRANSFERASE 20 U/L (15-37); BILIRUBIN,TOTAL 0.4 mg/dL (0.2-1.0); CALCIUM, SERUM 8.2 mg/dL (8.5-10.1); CARBON DIOXIDE 20 mmol/L (21-32); CHLORIDE 114 mmol/L (98-107); CREATININE 0.7 mg/dL (0.6-1.3); GLUCOSE 72 mg/dL (74-106); MAGNESIUM 2.4 mg/dL (1.8-2.4); POTASSIUM 3.9 mmol/L (3.5-5.1); SODIUM SERUM 143 mmol/L (136-145); TOTAL PROTEIN, SERUM 5.9 g/dL (6.4-8.2); UREA NITROGEN, BLOOD 18 mg/dL (7-18)
[2023-09-07] MEDS: ATORVASTATIN 10 MG TABLET PO SCH (22:17)
[2023-09-08] VITALS (7 sets, daily range): BP systolic 121; BP diastolic 58; TEMP 98.6; O2SAT 95–98
[2023-09-09 07:30] VITALS: BP 125/64; TEMP 98; O2SAT 94
[2023-09-09 07:54] VITALS: O2SAT 94
[2023-09-09 08:07] VITALS: O2SAT 96; O2SAT 98
[2023-09-09 13:28] VITALS: O2SAT 94
[2023-09-09 13:38] VITALS: O2SAT 93
[2023-09-10] MEDS ORDERED: ALENDRONATE 70 MG TABLET PO SCH (20:00)
== END 2023-09-09 16:51 | DRG 689 ==
LOC: ER 16:27 → MED 21:38
PROVIDERS: ADMIT Nurse Practitioner Acute Care; ATTEND Internal Medicine
DX: N39.0 Urinary tract infection, site not specified (principal); G93.41 Metabolic encephalopathy; E44.0 Moderate protein-calorie malnutrition; E78.5 Hyperlipidemia, unspecified; Z20.822 Contact with and (suspected) exposure to COVID-19; E88.09 Other disorders of plasma-protein metabolism, not elsewhere classified; B96.20 Unspecified Escherichia coli [E. coli] as the cause of diseases classified elsewhere; F03.90 Unspecified dementia, unspecified severity, without behavioral disturbance, psychotic disturbance, mood disturbance, and anxiety; I10 Essential (primary) hypertension; J44.9 Chronic obstructive pulmonary disease, unspecified; M81.0 Age-related osteoporosis without current pathological fracture; R62.7 Adult failure to thrive; R13.10 Dysphagia, unspecified; Z79.82 Long term (current) use of aspirin; F99 Mental disorder, not otherwise specified; R53.1 Weakness; Z68.25 Body mass index [BMI] 25.0-25.9, adult
CPT/HCPCS: 36415; 71045-TC; 80048-TC; 80053-TC; 80076-TC; 81001; 82962-TC; 83690-TC; 83735-TC; 83880; 84100-TC; 84484-TC; 85025-TC; 87081-TC; 87086-TC; 92526; 92611-TC; 94761-TC; 94799-TC; A4223; G0378; J0696; J7030; J7040; J7060

== ENCOUNTER 2024-12-01 15:44 | Inpatient (IN) | payer MEDICARE, OTHER ==
[~2024-12-01] VITALS: Ht 157.5 cm; Wt 58.1 kg
[~2024-12-01 15:44] MED LIST changes: -ASCO500T21 PO; -CALC100067 PO; -DOCU100C36 PO; -FLUT1DIS INH; +IPRA4AER IH; -KETO120S5 TP; +LITH150C PO; -NEOM28.43 TP; +OLAN2.5T3 PO; -OLAN5TAB3 PO; -OMEP20TA5 PO; +PANT40TA2 PO; -POLY17PO4 PO; +RISP0.2515 PO; -RISP3TAB5 PO; -TIOT18CA3 INH
[2024-12-01 16:30] LABS: PLATELET COUNT (AUTO) 248 K/uL (150-450); RED BLOOD CELL COUNT(AUTO) 4.65 MIL/uL (4.0-5.2); RED CELL DISTRIBUTION WIDTH 14.8 % (11.5-15.0); WHITE BLOOD COUNT (AUTO) 9.3 K/uL (4.3-11.0)
[2024-12-01 16:37] LABS: CALCIUM, SERUM 8.9 mg/dL (8.5-10.1); CREATININE 0.7 mg/dL (0.6-1.3); SODIUM SERUM 140 mmol/L (136-145); UREA NITROGEN, BLOOD 29 mg/dL (7-18)
[2024-12-01 16:40] LABS: ALCOHOL, BLOOD < 3 mg/dL (0-10)
[2024-12-01 16:54] LABS: ASPARTATE AMINOTRANSFERASE 20 U/L (15-37); TOTAL PROTEIN, SERUM 5.8 g/dL (6.4-8.2)
[2024-12-01] MEDS ORDERED: OLAN5TAB3 PO (18:27)
[2024-12-01] MEDS ORDERED: MAGN400O6 PO (18:27)
[2024-12-01] MEDS ORDERED: BISA10SU11 RC (18:27)
[2024-12-01] MEDS ORDERED: CHOL100040 PO (18:27)
[2024-12-01] MEDS ORDERED: RISP3TAB61 PO (18:27)
[2024-12-01] MEDS ORDERED: GUAI100S34 PO (18:27)
[2024-12-01] MEDS: IV NS 0.9% 1,000 ML BAG IV ONE (18:30)
[2024-12-01 19:24] LABS: APPEARANCE,URINE CLEAR (CLEAR); BLOOD, URINE TRACE-INTA Ery/uL (NEGATIVE); LEUKOCYTE ESTERASE ,URINE TRACE (NEGATIVE); NITRITE, URINE NEGATIVE (NEGATIVE); UGLUCOSE NEGATIVE (NEGATIVE)
[2024-12-01 19:32] LABS: ADD URINE CULTURE YES
[2024-12-01 20:06] LABS: AMPHETAMINE, URINE NEGATIVE (NEGATIVE); BARBITURATE, URINE NEGATIVE (NEGATIVE); BENZODIAZEPINE, URINE NEGATIVE (NEGATIVE); CANNABINOID, URINE NEGATIVE (NEGATIVE); COCCAINE, URINE NEGATIVE (NEGATIVE); OPIATE, URINE NEGATIVE (NEGATIVE)
[2024-12-01] MEDS ORDERED: CEPHALEXIN MONOHYDRATE 500 MG CAPSULE PO ONE (20:40)
[2024-12-01] MEDS: CEPHALEXIN MONOHYDRATE 500 MG CAPSULE PO ONE (20:46)
[2024-12-01 21:30] VITALS: BP 122/55; TEMP 97.3; O2SAT 97
[2024-12-01] MEDS ORDERED: MAGNESIUM HYDROXIDE 30 ML UDC PO PRN (21:30)
[2024-12-01] MEDS ORDERED: TEMAZEPAM 7.5 MG CAPSULE PO PRN (21:30)
[2024-12-01] MEDS ORDERED: ACETAMINOPHEN 325 MG TABLET PO PRN (21:30)
[2024-12-01] MEDS ORDERED: LORAZEPAM 0.5 MG TABLET PO PRN (21:30)
[2024-12-01] MEDS ORDERED: LORAZEPAM 1 MG TABLET PO PRN (21:30)
[2024-12-01] MEDS ORDERED: MAG HYDROX/AL HYDROX/SIMETH 30 ML UDC PO PRN (21:30)
[2024-12-01] MEDS: BLOOD SUGAR DIAGNOSTIC 1 EACH STRIP IN ONE (22:32)
[2024-12-02] MEDS ORDERED: BISACODYL SUPP (10 MG) 10 MG/SUPP.RECT SUPP.RECT RC PRN (01:00)
[2024-12-02] MEDS ORDERED: CEPHALEXIN MONOHYDRATE 250 MG/5 ML BOTTLE PO SCH ×2 (05:00→06:00)
[2024-12-02] MEDS ORDERED: IPRATROPIUM/ALBUTEROL INHALER IH SCH (06:00)
[2024-12-02] MEDS: PANTOPRAZOLE 40 MG TABLET.DR PO SCH (07:30)
[2024-12-02] MEDS: ALBUTEROL FS 2.5 MG/0.5 ML VIAL.NEB NEB SCH (07:35)
[2024-12-02 08:00] VITALS: BP 112/54; TEMP 97.7; O2SAT 95
[2024-12-02] MEDS: ASPIRIN 81 MG TAB.CHEW PO SCH (08:18)
[2024-12-02] MEDS: CHOLECALCIFEROL 1,000 UNIT TABLET (VIT D3) PO SCH (08:18)
[2024-12-02] MEDS: LACTULOSE 10 G/15 ML UDC (PYXIS) PO SCH (08:18)
[2024-12-02 08:21] LABS: SERUM AMMONIA 3 umol/L (11-32)
[2024-12-02 08:27] LABS: ASPARTATE AMINOTRANSFERASE 21.0 U/L (15-37); CALCIUM, SERUM 8.6 mg/dL (8.5-10.1); CREATININE 0.6 mg/dL (0.6-1.3); SODIUM SERUM 142.0 mmol/L (136-145); TOTAL PROTEIN, SERUM 5.5 g/dL (6.4-8.2); UREA NITROGEN, BLOOD 20.0 mg/dL (7-18)
[2024-12-02 08:56] LABS: LDL 49 mg/dL (0-99)
[2024-12-02 10:20] LABS: CREATININE 0.5 mg/dL (0.6-1.3)
[2024-12-02] MEDS: CEPHALEXIN MONOHYDRATE 500 MG CAPSULE PO SCH (12:23)
[2024-12-02] MEDS: IPRATROPIUM NEB FS 0.5 MG/2.5 ML AMPUL.NEB NEB SCH (13:30)
[2024-12-02 16:00] VITALS: BP 114/65; TEMP 98.7; O2SAT 96
[2024-12-02] MEDS: LITHIUM CARBONATE 150 MG CAPSULE PO SCH (16:33)
[2024-12-02] MEDS: QUETIAPINE FUMARATE 25 MG TABLET PO SCH (16:33)
[2024-12-02 19:54] VITALS: BP 122/58; TEMP 98.4; O2SAT 97
[2024-12-02] MEDS: ATORVASTATIN 10 MG TABLET PO SCH (21:36)
[2024-12-03 08:00] VITALS: BP 107/56; TEMP 98.6; O2SAT 98
[2024-12-03] MEDS ORDERED: OLANZAPINE 10 MG VIAL IM PRN (13:30)
[2024-12-03 16:00] VITALS: BP 115/63; TEMP 97.9; O2SAT 98
[2024-12-03 21:18] VITALS: BP 102/54; TEMP 97.9; O2SAT 96
[2024-12-03] MEDS: GUAIFENESIN/D-METHORPHAN HB 5 ML UDC PO PRN (21:19)
[2024-12-04] MEDS ORDERED: Z GUARD REMEDY 4 OZ OINT TP PRN (07:00)
[2024-12-04 08:00] VITALS: BP 106/54; TEMP 98.1; O2SAT 98
[2024-12-04] MEDS ORDERED: ALBUTEROL FS 2.5 MG/0.5 ML VIAL.NEB NEB PRN (09:00)
[2024-12-04] MEDS ORDERED: IPRATROPIUM NEB FS 0.5 MG/2.5 ML AMPUL.NEB NEB PRN (09:00)
[2024-12-04 16:00] VITALS: BP 98/55; TEMP 99.7; O2SAT 95
[2024-12-04 21:10] VITALS: BP 112/52; TEMP 98.1; O2SAT 95
[2024-12-05 08:00] VITALS: BP 100/59; TEMP 97.8; O2SAT 96
[2024-12-05 16:00] VITALS: BP 117/62; TEMP 97.9; O2SAT 93
[2024-12-05 20:00] VITALS: BP 108/59; TEMP 97.5; O2SAT 97
[2024-12-05 20:50] VITALS: BP 108/59; TEMP 97.5; O2SAT 95
[2024-12-06] MEDS: TEMAZEPAM 7.5 MG CAPSULE PO PRN (00:28)
[2024-12-06 08:00] VITALS: BP 129/60; TEMP 97.5; O2SAT 96
[2024-12-06] MEDS: ENOXAPARIN SODIUM 40 MG/0.4 ML DISP.SYRIN SQ SCH (12:39)
[2024-12-06 16:00] VITALS: BP 111/52; TEMP 97.5; O2SAT 97
[2024-12-06 20:07] VITALS: BP 108/68; TEMP 97.9; O2SAT 97
[2024-12-07 07:08] LABS: PLATELET COUNT (AUTO) 284 K/uL (150-450); RED BLOOD CELL COUNT(AUTO) 4.85 MIL/uL (4.0-5.2); RED CELL DISTRIBUTION WIDTH 14.2 % (11.5-15.0); WHITE BLOOD COUNT (AUTO) 8.5 K/uL (4.3-11.0)
[2024-12-07 07:36] LABS: CALCIUM, SERUM 9.1 mg/dL (8.5-10.1); CREATININE 0.6 mg/dL (0.6-1.3); PHOSPHORUS 3.4 mg/dL (2.5-4.9); SODIUM SERUM 141.0 mmol/L (136-145); UREA NITROGEN, BLOOD 18.0 mg/dL (7-18)
[2024-12-07 08:00] VITALS: BP 106/53; TEMP 97.6; O2SAT 98
[2024-12-07 16:14] VITALS: BP 100/49; TEMP 97.8; O2SAT 97
[2024-12-07] MEDS: LITHIUM CARBONATE 150 MG CAPSULE PO SCH (16:35)
[2024-12-07 20:03] VITALS: BP 105/53; TEMP 97.8; O2SAT 96
[2024-12-08] MEDS: ALENDRONATE 70 MG TABLET PO SCH (02:55)
[2024-12-08 05:08] LABS: FOLIC ACID 8.1 ng/mL (>3.0)
[2024-12-08 08:00] VITALS: BP 110/54; TEMP 98.6; O2SAT 98
[2024-12-08 16:00] VITALS: BP 115/62; TEMP 97.7; O2SAT 98
[2024-12-09 09:01] VITALS: BP 111/71; TEMP 97.7; O2SAT 94
[2024-12-09 16:00] VITALS: BP 91/56; TEMP 97.9; O2SAT 95
[2024-12-09 20:09] VITALS: BP_SYST 100; BP_SYST 121; BP_DIAS 50; BP_DIAS 80; TEMP 97.5; TEMP 98.1; O2SAT 100; O2SAT 94
[2024-12-10 08:00] VITALS: BP 104/50; TEMP 97.9; O2SAT 95
[2024-12-10] MEDS: MIDODRINE HCL (5MG) 5 MG TABLET PO SCH (12:47)
[2024-12-10 16:00] VITALS: BP 113/55; TEMP 97.9; O2SAT 94
[2024-12-10 20:47] VITALS: BP 114/69; TEMP 98; O2SAT 95
[2024-12-11 08:00] VITALS: BP 102/54; TEMP 98.6; O2SAT 97
[2024-12-11 16:00] VITALS: BP 110/62; TEMP 98.7; O2SAT 100
[2024-12-11 21:09] VITALS: BP 113/57; TEMP 98.6; O2SAT 97
[2024-12-12 08:00] VITALS: BP 113/56; TEMP 97.6; O2SAT 96
[2024-12-12 16:00] VITALS: BP 110/58; TEMP 97.7; O2SAT 93
[2024-12-12 20:39] VITALS: BP 93/62; TEMP 97.5; O2SAT 95
[2024-12-13 08:00] VITALS: BP 103/58; TEMP 98.6; O2SAT 97
[2024-12-13 14:07] LABS: VITAMIN B1 THIAMINE,WB 165.3 nmol/L (66.5-200.0)
[2024-12-13 16:00] VITALS: BP 102/53; TEMP 98.7; O2SAT 98
[2024-12-13 20:00] VITALS: BP 101/50; TEMP 97.8; O2SAT 97
[2024-12-13 20:14] VITALS: BP 101/50; TEMP 97.8; O2SAT 97
[2024-12-14 08:00] VITALS: BP 113/60; TEMP 97.8; O2SAT 94
[2024-12-14 12:19] VITALS: BP 93/67
== END 2024-12-14 15:05 | DRG 885 ==
LOC: ER 15:47 → GPS 20:53
PROVIDERS: ADMIT Psychiatry & Neurology Psychiatry; ATTEND Registered Nurse Psychiatric/Mental Health
DX: F20.9 Schizophrenia, unspecified (principal); G93.41 Metabolic encephalopathy; E44.0 Moderate protein-calorie malnutrition; F03.92 Unspecified dementia, unspecified severity, with psychotic disturbance; D68.00 Von Willebrand disease, unspecified; F29 Unspecified psychosis not due to a substance or known physiological condition; E78.5 Hyperlipidemia, unspecified; K21.9 Gastro-esophageal reflux disease without esophagitis; E88.09 Other disorders of plasma-protein metabolism, not elsewhere classified; I10 Essential (primary) hypertension; Z79.82 Long term (current) use of aspirin; Z79.899 Other long term (current) drug therapy; Z20.822 Contact with and (suspected) exposure to COVID-19; Z73.6 Limitation of activities due to disability; R73.9 Hyperglycemia, unspecified; F41.9 Anxiety disorder, unspecified; J44.9 Chronic obstructive pulmonary disease, unspecified
CPT/HCPCS: 36415; 70450-TC; 71045-TC; 80048-TC; 80053-TC; 80061-TC; 80076-TC; 80178-TC; 81001; 82140-TC; 82565-TC; 82607-TC; 82962-TC; 83735-TC; 83921; 84100-TC; 84425; 84443-TC; 85025-TC; 87040-TC; 87081-TC; 87086-TC; 92526; 92611; 97110-TC; 97112-TC; 97116-TC; 97530-TC; G0480; J1650; J3490; J7030